=== PATIENT | male | born 1995 | race Caucasian/White ===

== ENCOUNTER 2023-04-13 15:26 | Emergency (ER) | payer MEDICAID ==
[~2023-04-13] VITALS: Ht 170.2 cm; Wt 84.4 kg
[2023-04-13 16:20] VITALS: BP 132/67; PULSE 93; RESP 17; TEMP 100.1; O2SAT 98
[2023-04-13 17:40] LABS: APPEARANCE,URINE CLEAR (CLEAR); BILIRUBIN,URINE 1+ (NEGATIVE); BLOOD, URINE NEGATIVE (NEGATIVE); COLOR,URINE ORANGE (YELLOW); LEUKOCYTE ESTERASE ,URINE NEGATIVE (NEGATIVE); NITRITE, URINE NEGATIVE (NEGATIVE); PROTEIN,URINE TRACE (NEGATIVE); UGLUCOSE NEGATIVE (NEGATIVE)
[2023-04-13] MEDS: KETOROLAC 30 MG/ML VIAL IVP ONE (17:42)
[2023-04-13] MEDS: ONDANSETRON 4 MG/2 ML VIAL IVP ONE (17:43)
[2023-04-13] MEDS: NACL 0.9% 1,000 ML IV ONE (17:43)
[2023-04-13 17:45] LABS: ICTOTEST NEGATIVE (NEGATIVE)
[2023-04-13 17:52] LABS: AMPHETAMINE, URINE POSITIVE ng/ml (NEG <=1000); BARBITURATE, URINE NEGATIVE ng/ml (NEG <=200); BENZODIAZEPINE, URINE NEGATIVE ng/mL (NEG <=200); CANNABINOID, URINE POSITIVE ng/mL (NEG <=50); COCAINE, URINE POSITIVE ng/mL (NEG <=300); OPIATE, URINE NEGATIVE ng/mL (NEG <=2000); PHENCYCLIDINE SCREEN,URINE NEGATIVE ng/mL (NEG <=25)
[2023-04-13 18:05] LABS: BASOPHILS % (AUTO) 0.3 % (0.0-2.0); EOSINOPHILS % (AUTO) 0.2 % (0.0-4.0); HEMATOCRIT 43.9 % (36-52); HEMOGLOBIN 15.8 g/dL (12.0-18.0); LYMPHOCYTES % (AUTO) 16.4 % (20.5-51.1); MEAN CORPUSCULAR HEMOGLOBIN 33 pg (27-31); MEAN CORPUSCULAR HGB CONC 36 g/dL (33-37); MEAN CORPUSCULAR VOLUME 90.4 fL (80-94); MONOCYTES # (AUTO) 1.6 K/uL (0.8-1.0); MONOCYTES % (AUTO) 13.2 % (1.7-9.3); NEUTROPHILS # (AUTO) 8.7 K/uL (1.8-7.7); NEUTROPHILS % (AUTO) 69.9 % (42.2-75.2); PLATELET COUNT (AUTO) 263 K/uL (140-450); RED BLOOD CELL COUNT(AUTO) 4.85 MIL/uL (4.20-6.10); RED CELL DISTRIBUTION WIDTH 12.6 % (11.6-13.7); WHITE BLOOD COUNT (AUTO) 12.5 K/uL (4.8-10.8)
[2023-04-13 18:15] LABS: ANION GAP 13.1 (8-16); CALCIUM 8.9 mg/dL (8.5-10.1); CARBON DIOXIDE 25.1 mmol/L (21-32); CREATININE 1.1 mg/dL (0.6-1.3); POTASSIUM 3.2 mmol/L (3.5-5.1)
[2023-04-13 18:21] LABS: ALBUMIN 3.6 g/dL (3.4-5.0); BILIRUBIN,DIRECT 0.2 mg/dL (0.0-0.3); TOTAL BILIRUBIN 0.9 mg/dL (0.0-1.0)
[2023-04-13 19:17] LABS: FLU A ANTIGEN negative (NEGATIVE); FLU B ANTIGEN NEGATIVE (NEGATIVE)
[2023-04-13] MEDS: MORPHINE SULFATE 4 MG/ML SYR IVP ONE (20:48)
[2023-04-13] MEDS ORDERED: IBUP-2213 PO (21:04)
[2023-04-13] MEDS ORDERED: ONDA-188 SL (21:04)
[2023-04-13 21:18] VITALS: BP 132/67; PULSE 93; RESP 17; TEMP 98.6; O2SAT 98
== END 2023-04-13 21:18 | disposition home or self-care (01) ==
LOC: MED 15:26
DX: N28.1 Cyst of kidney, acquired (principal); Z20.822 Contact with and (suspected) exposure to COVID-19; K76.0 Fatty (change of) liver, not elsewhere classified; N20.0 Calculus of kidney; D72.829 Elevated white blood cell count, unspecified; E87.6 Hypokalemia; F15.10 Other stimulant abuse, uncomplicated; F12.90 Cannabis use, unspecified, uncomplicated; F14.90 Cocaine use, unspecified, uncomplicated; Z79.899 Other long term (current) drug therapy
CPT/HCPCS: 36415; 74176; 80048; 80076; 80305; 81003; 83690; 85025; 87426; 87804; 96361; 96374; 96375; 99285; J1885; J2270; J2405; J7030